=== PATIENT | male | born 1965 | race Caucasian/White ===

== ENCOUNTER 2022-12-28 09:22 | Day surgery (SDC) | payer MEDICAID ==
[~2022-12-28] VITALS: Ht 172.7 cm; Wt 83.0 kg
[2022-12-28] MEDS ORDERED: ONDANSETRON HCL 4 MG/2 ML VIAL ONE (12:00)
[2022-12-28] MEDS ORDERED: DESFLURANE 15 MIN GAS INH ONE (12:00)
[2022-12-28] MEDS ORDERED: MIDAZOLAM HCL 5 MG/5 ML VIAL ONE (12:00)
[2022-12-28] MEDS ORDERED: LIDOCAINE 2%, 20 ML MDV ONE (12:00)
[2022-12-28] MEDS ORDERED: LIDOCAINE/EPI 1% 1:100000 20 ML VIAL ONE (12:00)
[2022-12-28] MEDS ORDERED: DEXAMETHASONE SOD PHOSPHATE 4 MG/ML VIAL ONE (12:00)
[2022-12-28] MEDS ORDERED: fentaNYL CITRATE 250 MCG/5 ML AMP ONE (12:00)
[2022-12-28] MEDS ORDERED: WATER FOR IRRIGATION,STERILE 1,000 ML IRRIG.SOLN IR ONE (12:00)
[2022-12-28] MEDS ORDERED: EPINEPHrine HCL 1 MG/ML VIAL ONE (12:00)
[2022-12-28] MEDS ORDERED: NS 1000 ML IV.SOLN IV ONE (12:00)
[2022-12-28] MEDS ORDERED: SUGAMMADEX SODIUM 200 MG/2 ML VIAL IV ONE (12:00)
[2022-12-28] MEDS ORDERED: PROPOFOL 200MG/ 20ML VIAL (DIPRIVAN) IV ONE (12:00)
[2022-12-28] MEDS ORDERED: NS IRRIG SOLN 1000 ML IR ONE (12:00)
[2022-12-28] MEDS ORDERED: ROCURONIUM BROMIDE 10 MG/ML (ZEMURON) ONE (12:00)
[2022-12-28] MEDS ORDERED: ACETAMINOPHEN I.V. 1000 MG 100 ML IV ONE (12:08)
[2022-12-28] MEDS ORDERED: METOCLOPRAMIDE HCL 10 MG/2 ML VIAL IVP PRN (13:00)
[2022-12-28] MEDS ORDERED: LABETALOL 100 MG/ 20ML VIAL IVP PRN (13:00)
[2022-12-28] MEDS ORDERED: HYDROmorphone 1 MG/ML INJ. CARTRIDGE IVP PRN ×2 (13:00)
[2022-12-28] MEDS ORDERED: hydrALAZINE HCL 20 MG/ML VIAL IVP PRN (13:00)
[2022-12-28] MEDS ORDERED: MEPERIDINE HCL/PF 25 MG/ML DISP.SYRIN IVP PRN (13:00)
[2022-12-28] MEDS ORDERED: MIDAZOLAM HCL 2 MG/2 ML VIAL (VERSED) IVP PRN (13:00)
[2022-12-28] MEDS ORDERED: LR 1,000 ML IV SCH (13:00)
[2022-12-28] MEDS ORDERED: MEPERIDINE HCL/PF 25 MG/ML DISP.SYRIN ONE (16:15)
[2022-12-28 17:41] VITALS: BP_SYST 144
== END 2022-12-28 17:35 | disposition home or self-care (01) ==
LOC: SDS 09:22 → SMU 09:23 → SDS 17:35
PROVIDERS: ATTEND Otolaryngology
DX: J34.2 Deviated nasal septum (principal); D38.5 Neoplasm of uncertain behavior of other respiratory organs; I25.2 Old myocardial infarction; I10 Essential (primary) hypertension; E11.9 Type 2 diabetes mellitus without complications; I25.10 Atherosclerotic heart disease of native coronary artery without angina pectoris; Z95.5 Presence of coronary angioplasty implant and graft; Z87.891 Personal history of nicotine dependence; Z79.899 Other long term (current) drug therapy; Z20.822 Contact with and (suspected) exposure to COVID-19
CPT/HCPCS: 36415; 31298; 31255; 31256; 30140; 30520; 31240; 82962; 82948; 88304; 88305; 88311; U0003; J3490; J1100; J0171; J2001; J2250; J2405; J2704; J3010; J2175; J7030; C1726; J0131